=== PATIENT | female | born 1950 | race African-American/Black ===

== ENCOUNTER 2017-05-19 02:49 | Emergency (ER) | payer OTHER ==
[~2017-05-19] VITALS: Ht 157.5 cm; Wt 63.5 kg
[2017-05-19 02:50] VITALS: BP 113/77
== END 2017-05-19 03:10 ==
LOC: ER 02:49
DX: K94.23 Gastrostomy malfunction (principal); I10 Essential (primary) hypertension; E78.5 Hyperlipidemia, unspecified; K21.9 Gastro-esophageal reflux disease without esophagitis; Z86.69 Personal history of other diseases of the nervous system and sense organs; Y84.8 Other medical procedures as the cause of abnormal reaction of the patient, or of later complication, without mention of misadventure at the time of the procedure

== ENCOUNTER 2018-12-05 16:25 | Emergency (ER) | payer OTHER ==
[~2018-12-05] VITALS: Ht 167.6 cm; Wt 72.6 kg
[2018-12-05 16:26] VITALS: BP 159/102
== END 2018-12-05 16:58 ==
LOC: ER 16:25
DX: K94.23 Gastrostomy malfunction (principal); Y83.9 Surgical procedure, unspecified as the cause of abnormal reaction of the patient, or of later complication, without mention of misadventure at the time of the procedure; E78.5 Hyperlipidemia, unspecified; K21.9 Gastro-esophageal reflux disease without esophagitis

== ENCOUNTER 2018-12-06 12:04 | Emergency (ER) | payer OTHER ==
[~2018-12-06] VITALS: Ht 167.6 cm; Wt 72.6 kg
[2018-12-06 12:04] VITALS: BP 125/57
== END 2018-12-06 12:34 | disposition home or self-care (01) ==
LOC: ER 12:04
DX: K94.29 Other complications of gastrostomy (principal); K21.9 Gastro-esophageal reflux disease without esophagitis; E78.5 Hyperlipidemia, unspecified; I10 Essential (primary) hypertension; Z86.73 Personal history of transient ischemic attack (TIA), and cerebral infarction without residual deficits; Y84.8 Other medical procedures as the cause of abnormal reaction of the patient, or of later complication, without mention of misadventure at the time of the procedure

== ENCOUNTER 2020-09-16 18:36 | Emergency (ER) | payer OTHER ==
[~2020-09-16] VITALS: Ht 172.7 cm; Wt 90.7 kg
--- NOTE | ~2020-09-16 | EMS ---
[facility] [address] [place] [address] EMS Patient Care Report Name: ERLINDA QUINONES Room #: REG VIOLET Barrios#: [id number] Admission: 09/16/20 Attend Phys: Discharge: Date of : 52 Report #: [id number] THIS REPORT FOR: //name// Report Transmitted: 09/16/2020 19:10 EMS Care Summary [place], [place]/[facility] Incident [id number] @ 09/16/2020 17:41 Incident Location [id number] [place] [address] Patient ERLINDA QUINONES Female, 70 Years 1950 Patient Address [id number] [place] [address] Patient History Stroke/CVA, Patient Allergies No known allergies, Patient Medications Amlodipine, Carvedilol, Chief Complaint cardiac arrest Disposition Transported No Lights/[place] Dis[place] Reason Unconscious/Fainting Transported To [facility] Narrative ems met p28 on scene. [facility] staff stated pt has had an altered loc last known normal at 1430. staff stated pt is normally bed ridden and non verbal due to prior cva. pt found semi fowlers in bed and alert. pt gcs 10. pt presented with [facility] [address] [place] [address] EMS Patient Care Report Name: ERLINDA QUINONES Room #: ALEXIS Barrios#: [id number] Admission: 09/16/20 Attend Phys: Discharge: Date of : 52 Report #: [id number] slightly labored respirations at an adequate rate and depth. 89%spo2 ra per p28. pt was being administered 15lpm o2 via nrb per p28. [facility] staff agreed for pt to be transported to [facility]. due to covid prevention nrb was dc'd and pt was administered 6lpm o2 via nc. pt was transferred onto ems cot and was secured in a semi fowlers position without incident. face mask applied to pt. pt was loaded into ambulance. ems released p28 from scene. in ambulance pts respirations slowed til agonal along with a weak carotid pulse. pt was administered bvm ventilations at 15lpm o2 with HEPPA filter at 8-10bpm with assisting pts ventilations. 3-lead ekg revealed nsr. iv access was sought after but was not attempted due to no available vasculature. io access was obtained in L humerus. pt then became pulseless. cpr initiated. pts code status is full per va paperwork. p28 was called back to scene for cardiac arrest at 1812. p28 arrived on scene. pt was administered 1L fluid bolus of NS io. pt was administered a total of 4 epi 1mg 1: 10 000 io q 3-5 minutes throughout arrest. igel was placed and secured on scene with etco2. bvm ventilations continued at 6bpm with HEPPA filter and etco2 reading. pt was transported emergent to [facility]. during transport rhythm check pts rhythm converted to vfib. pt was administered 200j defib. cpr resumed. pt was administered 300mg amiodarone io. pts rhythm converted back to asystole/pea. at [facility] pts family met at ambulance while ems was unloading pt. pts family was advised that pt is actively being resuscitated and to please give space. pt care was transferred to appropriate staff and ems goes back in service. ROSC achieved at [facility]. Initial Vitals @18:04P: 66,R: 12,BP: 44/29, @18:16P: 0,R: 6,SpO2: 83, @18:18P: 0,R: 6,EtCO2: 8,SpO2: 57, @18:26P: 0,R: 6,EtCO2: 11,SpO2: 34, @18:23P: 0,R: 6,EtCO2: 9,SpO2: 100, @18:20P: 0,R: 6,EtCO2: 8,SpO2: 82, @18:24P: 0,R: 6,GCS: 3,EtCO2: 11, @18:25P: 0,R: 6,EtCO2: 12, @18:24P: 0,R: 6,EtCO2: 11,SpO2: 99, @18:29P: 0,R: 6,EtCO2: 15, @18:24P: 0,R: 6,GCS: 3,EtCO2: 10,CO Suspected: false @18:28P: 0,R: 6,SpO2: 63, @18:17P: 0,R: 6,SpO2: 54, @18:21P: 0,R: 6,EtCO2: 0,SpO2: 68, @17:51P: 64,R: 14,Pain: 0/10,GCS: 10,Glucose: 380, @18:11P: 0,R: 6,GCS: 3,SpO2: 92, @18:14P: 0,R: 6,GCS: 3,SpO2: 82, Assessments @17:51MENTAL:Other,SKIN:No Abnormalities,HEENT:Head/Face: No Abnormalities,Eyes: No Abnormalities,Neck/Airway: No Abnormalities,LUNG SOUNDS:General: No Abnormalities,Left Upper: No Abnormalities,Right Upper: No [facility] [address] [place] [address] EMS Patient Care Report Name: ERLINDA QUINONES Room #: [facility]#: [id number] Admission: 09/16/20 Attend Phys: Discharge: Date of : 52 Report #: [id number] Abnormalities,Left Lower: No Abnormalities,Right Lower: No Abnormalities,ABDOMEN:General: No Abnormalities,Left Upper: No Abnormalities,Right Upper: No Abnormalities,Left Lower: No Abnormalities,Right Lower: No Abnormalities,PELVIS//GI:No Abnormalities,EXTREMITIES:Left Arm: No Abnormalities,Right Arm: No Abnormalities,Left Leg: No Abnormalities,Right Leg: No Abnormalities,PULSE:NEURO:No Abnormalities,@18:26MENTAL:Unresponsive,SKIN:No Abnormalities,HEENT:Head/Face: No Abnormalities,Eyes: No Abnormalities,Neck/Airway: No Abnormalities,LUNG SOUNDS:General: No Abnormalities,Left Upper: No Abnormalities,Right Upper: No Abnormalities,Left Lower: No Abnormalities,Right Lower: No Abnormalities,ABDOMEN:General: No Abnormalities,Left Upper: No Abnormalities,Right Upper: No Abnormalities,Left Lower: No Abnormalities,Right Lower: No Abnormalities,PELVIS//GI:No Abnormalities,EXTREMITIES:Left Arm: No Abnormalities,Right Arm: No Abnormalities,Left Leg: No Abnormalities,Right Leg: No Abnormalities,PULSE:NEURO:No Abnormalities, Impression Cardiac arrest Procedures @17:51ALS AssessmentResponse: UnchangedSucceeded@18:24Response: UnchangedSucceeded@18:11Response: ImprovedSucceeded@18:08Oxygen FlowRate: 15 Device: Bag Valve Mask (BVM) Response: ImprovedSucceeded@18:02Normal Saline (.9% NaCl) 1000cc (EZ-IO (Yellow 45mm)) Site: BB-Ejwioqo-HyelDmaebzuv: UnchangedSucceeded@18:13Epinephrine 1:10 - 1 Milligrams (mg) - Intraosseous (IO)Response: Unchanged@18:18Epinephrine 1:10 - 1 Milligrams (mg) - Intraosseous (IO)Response: Unchanged@18:26Amiodarone - 300 Milligrams (mg) - Intraosseous (IO)Response: Improved@18:23Epinephrine 1:10 - 1 Milligrams (mg) - Intraosseous (IO)Response: Unchanged@18:27Epinephrine 1:10 - 1 Milligrams (mg) - Intraosseous (IO)Response: Unchanged@18:18iGEL Complications: None,Response: ImprovedSucceeded@PTAOxygen FlowRate: 15 Device: Non Re-breather Mask (NRB) Response: ImprovedSucceeded@17:54Oxygen FlowRate: 6 Device: Nasal Cannula (NC) Response: UnchangedSucceeded Timeline QUALITY ASSOCIATE,Oxygen FlowRate: 15 Device: Non Re-breather Mask (NRB) Response: ImprovedSucceeded, 17:40,Call Received 17:40,Dispatch Notified 17:41,Dispatched 17:42,En Route 17:50,On Scene 17:51,At Patient 17:51,ALS Assessment,Response: UnchangedSucceeded, 17:51,BP: / M,PULSE: 64,RR: 14 R,SPO2: Ox,ETCO2: ,B,PAIN: 0,GCS: 10, 17:54,Oxygen FlowRate: 6 Device: Nasal Cannula (NC) Response: [facility] [address] [place] [address] EMS Patient Care Report Name: ERLINDA QUINONES Room #: REG [facility]#: [id number] Admission: 09/16/20 Attend Phys: Discharge: Date of : 52 Report #: [id number] UnchangedSucceeded, 18:02,Normal Saline (.9% NaCl) 1000cc EZ-IO (Yellow 45mm) Site: CS-Nzsuxrf-Cita,Response: UnchangedSucceeded, 18:04,BP: 44/29 M,PULSE: 66,RR: 12 R,SPO2: Ox,ETCO2: ,BG: ,PAIN: ,GCS: , 18:08,Oxygen FlowRate: 15 Device: Bag Valve Mask (BVM) Response: ImprovedSucceeded, 18:11,Response: ImprovedSucceeded, 18:11,BP: / M,PULSE: 0,RR: 6 R,SPO2: 92 Ox,ETCO2: ,BG: ,PAIN: ,GCS: 3, 18:13,Epinephrine 1:10 - 1 Milligrams (mg) - Intraosseous (IO),Response: Unchanged 18:14,BP: / M,PULSE: 0,RR: 6 R,SPO2: 82 Ox,ETCO2: ,BG: ,PAIN: ,GCS: 3, 18:16,BP: / M,PULSE: 0,RR: 6 R,SPO2: 83 Ox,ETCO2: ,BG: ,PAIN: ,GCS: , 18:17,BP: / M,PULSE: 0,RR: 6 R,SPO2: 54 Ox,ETCO2: ,BG: ,PAIN: ,GCS: , 18:18,Epinephrine 1:10 - 1 Milligrams (mg) - Intraosseous (IO),Response: Unchanged 18:18,iGEL Complications: None,,Response: ImprovedSucceeded, 18:18,BP: / M,PULSE: 0,RR: 6 R,SPO2: 57 Ox,ETCO2: 8 ,BG: ,PAIN: ,GCS: , 18:20,BP: / M,PULSE: 0,RR: 6 R,SPO2: 82 Ox,ETCO2: 8 ,BG: ,PAIN: ,GCS: , 18:20,Depart Scene 18:21,BP: / M,PULSE: 0,RR: 6 R,SPO2: 68 Ox,ETCO2: 0 ,BG: ,PAIN: ,GCS: , 18:23,Epinephrine 1:10 - 1 Milligrams (mg) - Intraosseous (IO),Response: Unchanged 18:23,BP: / M,PULSE: 0,RR: 6 R,SPO2: 100 Ox,ETCO2: 9 ,BG: ,PAIN: ,GCS: , 18:24,Response: UnchangedSucceeded, 18:24,BP: / M,PULSE: 0,RR: 6 R,SPO2: Ox,ETCO2: 11 ,BG: ,PAIN: ,GCS: 3, 18:24,BP: / M,PULSE: 0,RR: 6 R,SPO2: Ox,ETCO2: 10 ,BG: ,PAIN: ,GCS: 3, 18:24,BP: / M,PULSE: 0,RR: 6 R,SPO2: 99 Ox,ETCO2: 11 ,BG: ,PAIN: ,GCS: , 18:25,BP: / M,PULSE: 0,RR: 6 R,SPO2: Ox,ETCO2: 12 ,BG: ,PAIN: ,GCS: , 18:26,Amiodarone - 300 Milligrams (mg) - Intraosseous (IO),Response: Improved 18:26,BP: / M,PULSE: 0,RR: 6 R,SPO2: 34 Ox,ETCO2: 11 ,BG: ,PAIN: ,GCS: , 18:27,Epinephrine 1:10 - 1 Milligrams (mg) - Intraosseous (IO),Response: Unchanged 18:28,BP: / M,PULSE: 0,RR: 6 R,SPO2: 63 Ox,ETCO2: ,BG: ,PAIN: ,GCS: , 18:28,At Destination 18:29,BP: / M,PULSE: 0,RR: 6 R,SPO2: Ox,ETCO2: 15 ,BG: ,PAIN: ,GCS: , 18:49,Call Closed Disclaimer v1.1 Copyright 2020 [employer] This EMS Care Summary contains data elements from the applicable legal record (which may be displayed differently). It is designed to provide pertinent information for the following purposes: continuity of care, clinical quality, and state data reporting. The complete legal record is available to ED staff and administrators of the receiving hospital in [employer]'s Patient Tracker. All data is provided "as is."
== END 2020-09-16 19:15 ==
LOC: ER 18:36
DX: I46.9 Cardiac arrest, cause unspecified (principal); E78.5 Hyperlipidemia, unspecified; K21.9 Gastro-esophageal reflux disease without esophagitis; I10 Essential (primary) hypertension